=== PATIENT | female | born 1970 | race American Indian/Alaskan Native ===

== ENCOUNTER 2020-04-02 21:22 | Emergency (ER) | payer SELFPAY ==
[2020-04-02 22:50] VITALS: BP 132/82
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
[2020-04-02] MEDS ORDERED: KETOROLAC 10 MG TAB PO ONE (23:34)
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
== END 2020-04-03 00:39 | disposition home or self-care (01) ==
LOC: ED 21:22
DX: S16.1XXA Strain of muscle, fascia and tendon at neck level, initial encounter (principal); E78.00 Pure hypercholesterolemia, unspecified; Z90.79 Acquired absence of other genital organ(s); Z88.6 Allergy status to analgesic agent; V89.2XXA Person injured in unspecified motor-vehicle accident, traffic, initial encounter; Y93.89 Activity, other specified; Y92.410 Unspecified street and highway as the place of occurrence of the external cause; Y99.8 Other external cause status
CPT/HCPCS: 72040; 72125